=== PATIENT | female | born 1985 | race Caucasian/White ===

== ENCOUNTER → 2016-11-17 | Outpatient (CLI) | payer OTHER ==
[~2016-11-17] MED LIST: ALBUTEROL SULF0.5 M1 IH; CELEXA 20MG20 MG/TAB PO; CYPROHEPTADINE H4 MG PO; DEPO-PROVER150 MG/M1 IM; LANTUS SOLOS100 U/ML SQ; NICODERM C21 MG/PATC TOP; NOVOLOG 100U100 U/M1 SC; NOVOLOG FLEX100 U/ML SQ; TOPAMAX 100MG100 M1 PO; TRILEPTAL600 MG PO; ZOFRAN8 MG PO
== END ==
LOC: COL.LAB 16:14
DX: O03.9 Complete or unspecified spontaneous abortion without complication (principal)

== ENCOUNTER → 2016-11-24 | Outpatient (CLI) | payer OTHER | LOC: COL.LAB 12:32 | DX: E34.9 Endocrine disorder, unspecified (principal) ==

== ENCOUNTER → 2016-12-02 | Outpatient (CLI) | payer OTHER | LOC: COL.LAB 15:22 | DX: E34.9 Endocrine disorder, unspecified (principal) ==

== ENCOUNTER 2017-07-12 02:27 | Emergency (ER) | payer OTHER ==
[~2017-07-12] VITALS: Ht 177.8 cm; Wt 90.5 kg
[2017-07-12 03:40] LABS: COLLECTION METHOD CLEAN CATCH
[2017-07-12 03:43] LABS: BASO % 0.3 % (0.0-2.0); EOS # 0.2 (0.0-0.7); EOS % 1.2 % (0-4.0); GRAN # 11.2 (1.4-6.5); GRAN % 81.4 % (42.2-75.2); HEMATOCRIT 37.3 % (37.0-47.0); HEMOGLOBIN 12.2 g/dl (12.5-16.0); LYMPH # 1.4 (1.2-3.4); MEAN CELL VOLUME 94 fl (80.0-100.0); MEAN CORPUSCULAR HEMOGLOBIN 31 pg (27.0-31.0); MEAN CORPUSCULAR HGB CONC 33 g/dl (33.0-37.0); MEAN PLATELET VOLUME 10.2 fl (7.4-10.4); MONO # 0.9 (0.1-0.6); MONO % 6.6 % (1.7-9.3); PLATELET COUNT 225 K/mm3 (130-400); RED BLOOD COUNT 3.99 M/mm3 (4.10-5.30)
[2017-07-12 03:49] LABS: MUCOUS Present /lpf; PH 6 (5-8); URINE APPEARANCE Clear; URINE BACTERIA Moderate /hpf; URINE BILIRUBIN Negative (NEGATIVE); URINE BLOOD 1+ (NEGATIVE); URINE COLOR Yellow; URINE GLUCOSE Negative (NEGATIVE); URINE KETONE Negative (NEGATIVE); URINE LEUKOCYTE ESTERASE Negative (NEGATIVE); URINE NITRATE Negative (NEGATIVE); URINE PROTEIN(semi-quant) 2+ (NEGATIVE); URINE RBC 0-2 /hpf; URINE UROBILINOGEN Negative (NEGATIVE)
[2017-07-12 03:54] LABS: ALBUMIN 3.8 gm/dL (3.5-5.0); BILIRUBIN,TOTAL 0.1 mg/dL (0.0-1.0); CALCIUM 8.8 mg/dL (8.4-10.2); CREATININE, serum 0.61 mg/dL (0.52-1.25); POTASSIUM 3.7 mmol/L (3.4-5.0); TOTAL PROTEIN 7.2 gm/dL (6.4-8.2)
[2017-07-12 05:13] VITALS: PULSE 95
[2017-07-12 05:23] VITALS: BP 144/96
== END 2017-07-12 05:30 | disposition home or self-care (01) ==
LOC: COL.ER 02:27
PROVIDERS: Emergency Medicine
DX: O24.013 Pre-existing type 1 diabetes mellitus, in pregnancy, third trimester (principal); E10.649 Type 1 diabetes mellitus with hypoglycemia without coma; Z3A.28 28 weeks gestation of pregnancy

== ENCOUNTER 2017-08-29 06:57 | Outpatient (CLI) | payer OTHER ==
[~2017-08-29] VITALS: Ht 177.8 cm; Wt 98.2 kg
[2017-08-29 07:11] VITALS: BP 137/91; PULSE 95; TEMP 98.3
[2017-08-29] MEDS ORDERED: NOVOLOG 100U100 U/M1 SQ (07:19)
[2017-08-29] MEDS ORDERED: TRILEPTAL600 MG PO (07:20)
[2017-08-29] MEDS ORDERED: PRENATAL PLUS (07:21)
[2017-08-29] MEDS ORDERED: NORMODYNE100 MG PO (07:22)
[2017-08-29] MEDS ORDERED: ASPIRIN 81M81 MG/TA2 PO (07:23)
[2017-08-29] MEDS ORDERED: FOLIC ACID0.4 MG PO (07:23)
[2017-08-29 07:53] VITALS: BP 135/82; PULSE 78; TEMP 98.3
== END 2017-08-29 07:55 | disposition home or self-care (01) ==
LOC: LDRO 06:57
DX: O36.8130 Decreased fetal movements, third trimester, not applicable or unspecified (principal); Z3A.35 35 weeks gestation of pregnancy

== ENCOUNTER → 2017-10-08 | Outpatient (CLI) | payer OTHER ==
[~2017-10-08] MED LIST changes: +ASPIRIN 81M81 MG/TA2 PO; +FOLIC ACID0.4 MG PO; +NORMODYNE100 MG PO; +NOVOLOG 100U100 U/M1 SQ; +PRENATAL PLUS
== END ==
LOC: LAC 14:03
DX: Z39.1 Encounter for care and examination of lactating mother (principal); Z71.89 Other specified counseling

== ENCOUNTER 2021-05-28 05:46 | Emergency (ER) | payer OTHER ==
[2021-05-28 05:50] VITALS: BP 134/89; TEMP 98.2
[2021-05-28] MEDS ORDERED: PREDNISONE50 MG PO (06:13)
[2021-05-28 06:30] VITALS: PULSE 78
[2021-05-29] MEDS ORDERED: SYMJEPI0.3 MG/0.3 IJ (16:33)
== END 2021-05-28 06:40 | disposition home or self-care (01) ==
LOC: COL.ER 05:46
DX: L50.9 Urticaria, unspecified (principal); E10.9 Type 1 diabetes mellitus without complications
CPT/HCPCS: J7512

== ENCOUNTER 2021-05-29 13:08 | Emergency (ER) | payer OTHER ==
[~2021-05-29] VITALS: Ht 177.8 cm; Wt 95.5 kg
[~2021-05-29 13:08] MED LIST changes: +PREDNISONE50 MG PO
[2021-05-29 13:11] VITALS: TEMP 97.9
[2021-05-29] MEDS ORDERED: SYMJEPI0.3 MG/0.3 IJ (16:33)
[2021-05-29 17:15] VITALS: BP 115/71; PULSE 99
== END 2021-05-29 17:15 | disposition home or self-care (01) ==
LOC: COL.ER 13:08
DX: T78.3XXA Angioneurotic edema, initial encounter (principal); T78.2XXA Anaphylactic shock, unspecified, initial encounter; E10.9 Type 1 diabetes mellitus without complications
CPT/HCPCS: J0171; J1200; J2930; J7030

== ENCOUNTER 2022-09-05 08:06 | Outpatient (CLI) | payer OTHER ==
[~2022-09-05] VITALS: Ht 177.8 cm; Wt 115.5 kg
[~2022-09-05 08:06] MED LIST changes: +SYMJEPI0.3 MG/0.3 IJ
--- NOTE | 2022-09-05 08:15 | NUR ---
PATIENT WHEELED TO UNIT BY KIRSTY. ALFREDO ORIENTED TO LABOR ROOM 4 AND ASSISTED INTO GOWN. PATIENT REPORTS LOCALIZED PAIN IN HER LOWER RIGHT ABDOMEN THAT RADIATES TO HER LEG IF SHE PUTS WEIGHT ON IT, DECREASED MOVEMENT AT HOME AND TRIED EATING A SNACK, DRINKING WATER OR HOT TEA AND EXTERNAL STIMULATION. PATIENT HAS NOT HAD CONTRACTIONS AND IS NOT HAVING LEAKING OR FLUID OR VAGINAL BLEEDING. UPON FURTHER ASSESSMENT PATIENT SLIPPED ON A PILLOW IN THE MIDDLE OF NIGHT ON 09/03/22 AND HAS HAD THE PAIN SINCE THEN. PATIENT REPORTS FEELING BABY MOVE A FEW TIME SINCE ARRIVAL TO THE HOSPITAL.
[2022-09-05] MEDS ORDERED: LEVOXYL0.025 MG PO (08:42)
[2022-09-05 09:12] VITALS: BP 138/88; PULSE 95; TEMP 98.4
--- NOTE | 2022-09-05 09:22 | NUR ---
DICHARGE ORDER OBTAINED FROM . PATIENT AGREES WITH GOING HOME AND ADKNOWLEDGES NEED TO KEEP ALL OB APPOINTMENTS AND TRY TO REST. PATIENT AMBULATORY OFF UNIT.
== END 2022-09-05 09:22 | disposition home or self-care (01) ==
LOC: LDRO 08:06 → LDR 08:15 → LDRO 09:22
DX: O36.8130 Decreased fetal movements, third trimester, not applicable or unspecified (principal); Z3A.34 34 weeks gestation of pregnancy
CPT/HCPCS: OP

== ENCOUNTER 2022-09-08 02:27 | Outpatient (CLI) | payer OTHER ==
[~2022-09-08] VITALS: Ht 177.8 cm; Wt 115.5 kg
[~2022-09-08 02:27] MED LIST changes: +LEVOXYL0.025 MG PO
--- NOTE | 2022-09-08 02:35 | NUR ---
0235- PT PRESENTS TO LDR COMPLAINING OF N/V/D, TO ROOM LR6 PER WHEELCHAIR, CHANGED INTO GOWN. 0241- EFM X2 APPLIED. DIFFICULT TO GET FHT'S DUE TO BREECH POSITION AND MOM MOVING AROUND AND VOMITTING. PT REPORTS SHE HAS BEEN VOMITTING ALL DAY AND HASN'T KEPT ANYTHING DOWN BUT A BOTTLE OF WATER AT 1600. HAS ALSO HAD MULTIPLE EPISODES OF DIARRHEA. FEELS LIKE SHE LEAKED WITH AN EPISODE OF VOMITTING AND IS WORRIED THAT SHE MAY HAVE RUPTURED, SHE IS NOT CURRENTLY LEAKING ANYTHING. PT IS A TYPE 1 DIABETIC AND HAS TURNED HER PUMP OFF DUE TO N/V/D. PT STATES SHE IS FEELING BABY MOVE. 0250- AMNIOTRACE NEGATIVE FOR SROM, SVE BY THIS NURSE 0- WITH NO POOLING OF FLUID OR VAGINAL BLEEDING. PLAN OF CARE DISCUSSED WITH PT AND QUESTIONS ANSWERED. NURSE CONTINUES TO ADJUST MONITOR. 0305- MONITORS ADJUSTED. 0317- PT UP TO BATHROOM. 0321- DR FRANCO CALLED CHARTED. ORDERS RECEIVED. 0325- PT REPORTS BLOOD SUGAR IS 326 PER HER CONTINUOUS MONITOR AND THIS IS REPORTED TO DR FRANCO. 0335-IV START TO LEFT HAND, BLOOD DRAWN FOR LAB. PT BACK ON MONITORS. 0343- NORMAL SALINE INFUSING AND ZOFRAN GIVEN ORDERED. 0348- PT BACK TO BED AND ON EFM MONITORS. 0356- PT REPORTS BLOOD GLUCOSE IS 341 PER HER CONTINUOUS MONITOR. 0405- DIFFICULT TO MONITOR FHT DUE TO BABY BREECH POSITION AND PT NOW ON LEFT SIDE. 0422- PT REPORTS BLOOD GLUCOSE IS 323 PER HER CONTINUOUS MONITOR. 0425- DR FRANCO CALLED AND UPDATED CHARTED. ORDERS RECEIVED.
[2022-09-08 03:00] VITALS: BP 132/77; PULSE 116; TEMP 98.9
[2022-09-08 03:30] VITALS: PULSE 119
[2022-09-08 03:59] LABS: HEMATOCRIT 42.1 % (37.0-47.0); HEMOGLOBIN 13.6 g/dl (12.5-16.0); MEAN CELL VOLUME 88 fl (80.0-100.0); MEAN CORPUSCULAR HEMOGLOBIN 28 pg (27-31); MEAN CORPUSCULAR HGB CONC 32 g/dl (33.0-37.0); MEAN PLATELET VOLUME 12.7 fl (7.4-10.4); PLATELET COUNT 186 K/mm3 (130-400); RED BLOOD COUNT 4.81 M/mm3 (4.10-5.30)
--- NOTE | 2022-09-08 04:40 | NUR ---
0440- NURSE TO BEDSIDE, MONITORS ADJUSTED. PT REPORTS SHE HAS BEEN FEELING BETTER. 0445- BLOOD GLUCOSE 303 PER PTS CONTINUOUS MONITOR. 0505- NEGRO BRADLEY HERE FOR HOSPITALIST CONSULT. UPDATED BY NURSE AND REVIEWS PT CHART. 0515- NEGRO TO BEDSIDE TO ASSESS PT AND ANSWER QUESTIONS. 0520- ORDERS RECEIVED. 0532- IV INSULIN GIVEN ORDERED. BLOOD GLUCOSE 230 PER PTS CONTINUOUS MONITOR. 0535- PT UP TO BATHROOM. 0553- PT BACK TO BED ON MONITOR. SHE REPORTS THAT HER CONTINUOUS MONITOR SAYS HER BG IS OVER 200, SO SHE DID A FINGERSTICK ON HER MONITOR THAT SAID 140. SHE WANTS US TO USE OUR GLUCOSE MACHINE TO DOUBLE CHECK. 0600- BLOOD GLUCOSE PER HOSPITAL GLUCOMETER 120. PT STATES SHE FEELS LIKE SHE CAN EAT A SNACK AT THIS TIME. MARK CRACKERS, PEANUT BUTTER, AND ORANGE PROVIDED.
[2022-09-08 05:00] VITALS: BP 130/75; PULSE 120
[2022-09-08 05:00] LABS: BAND 24 % (0-10); LYMPHOCYTE 5 % (20.0-51.0); NEUTROPHILS 65 % (42.0-75.2); PLATELET ESTIMATE NORMAL (NORMAL)
[2022-09-08 05:30] VITALS: BP 126/80; PULSE 121
[2022-09-08 06:21] LABS: COLLECTION METHOD CLEAN CATCH
[2022-09-08 06:32] LABS: ALBUMIN 2.6 gm/dL (3.5-5.0); BILIRUBIN,TOTAL 0.4 mg/dL (0.2-1.2); CREATININE, serum 0.77 mg/dL (0.57-1.11); POTASSIUM 4.2 mmol/L (3.5-4.5); TOTAL PROTEIN 6.6 gm/dL (6.2-8.1)
[2022-09-08 06:38] LABS: MUCOUS Present (NOT PRESENT); URINE BACTERIA None Seen /hpf (NONE SEEN)
[2022-09-08 06:50] LABS: URINE APPEARANCE Hazy (CLEAR/HAZY); URINE BLOOD Negative (NEGATIVE); URINE COLOR Yellow (YELLOW); URINE GLUCOSE 2+ (NEGATIVE); URINE KETONE 4+ (NEGATIVE); URINE NITRATE Negative (NEGATIVE); URINE PROTEIN(semi-quant) TRACE (NEGATIVE); URINE UROBILINOGEN 0.2 E.U/dL (0.2-1.0)
--- NOTE | 2022-09-08 07:04 | NUR ---
CALL TO NEWSPAPER REPORTER OB TO PROVIDE IN DEPTH PT UPDATE. PT, IS OUT OF OFFICE TODAY. PER LAB, PT IS COVID+, PROPER PRECAUTIONS IN PLACE. HOSPITALIST FOLLOWING THROUGHOUT NIGHT, WAS CONCERNED WITH DKA POTENTIAL. ALL BLOOD SUGARS STABLE USING HOSPITAL ACCUCHECK, BG AT 0630:108. PER WE CAN DC ORDERS FOR Q30 MIN BG'S PER ON FINISH PRODUCTION MANAGER. CHECK BG'S PRN FROM THIS POINT FORWARD. PT REPORTS RELIEF WITH IV FLUIDS AND ZOFRAN. ALL LABS REVIEWED. CATEGORY 1 INTERMITTENT EFM TRACING. INFANT PRESENTING BREECH. NO CONTRACTIONS NOTED. MODERATE VARIABILITY AT THIS TIME. PT ABLE TO TOLERATE PO MARK CRACKERS AND PEANUT BUTTER. TALKATIVE AND APPEARS TO BE FEELING BETTER. PER PT MAY DC HOME FOLLOWING HOSPITALIST ROUNDING, IF HOSPITALIST IS IN AGREEANCE AFTER REVIEWING CASE. STATES HE IS "FINE WITH PO COVID MEDS, IF HOSPITALIST RECOMMENDS THEM." PT TO CONTINUE AT HOME WITH CURRENT HOME PROTOCOL REGARDING IV INSULIN PUMP AND BG CHECKS. STOOL SAMPLE AND FLU SWAB STILL PENDING. WILL UPDATE HOSPITALIST AT THIS TIME TO DETERMINE NEXT STEPS IN POC.
--- NOTE | 2022-09-08 07:20 | NUR ---
, HOSPITALIST CALLED AT THIS TIME. FULL PT REPORT PROVIDED UPON REQUEST. NOTIFIED PT IS COVID +. ALL QUESTIONS ANSWERED APPROPRIATELY. REVIEWED TRIAL MGR CURRENT ORDERS, INCLUDING PT BEING ALLOWED TO DC HOME UPON HOSPITALIST APPROVAL. PER HE IS GOING TO REVIEW CASE, AND "GET BACK TO ME" WITH FURTHER ORDERS, INCLUDING DC PLAN.
--- NOTE | 2022-09-08 08:10 | NUR ---
AT BEDSIDE. PER , PT MAY DC HOME. PT ALREADY ON ASPIRIN THERAPY, ORDERS TO CONTINUE. ALREADY SEEING MFM. WILL CONTINUE WITH [id number] FOLLOW UP APPOINTMENTS AND RETURN WITH WORSENING SYMPTOMS. NOTIFIES HOSPITALIST OF PT'S DISCHARGE.
--- NOTE | 2022-09-08 08:30 | NUR ---
0830 - ALL D/C PAPERWORK REVIEWED AND UNDERSTOOD. PATIENT AMBULATORY OFF UNIT IN STABLE CONDITION.
== END 2022-09-08 08:30 | disposition home or self-care (01) ==
LOC: LDRO 02:27 → LDR 03:21 → LDRO 08:30
PROVIDERS: Obstetrics & Gynecology
DX: O21.9 Vomiting of pregnancy, unspecified (principal); Z3A.34 34 weeks gestation of pregnancy
CPT/HCPCS: OP; J1815; J2405; J7030

== ENCOUNTER 2022-09-11 09:26 | Outpatient (CLI) | payer OTHER ==
[~2022-09-11] VITALS: Ht 177.8 cm; Wt 115.2 kg
--- NOTE | 2022-09-11 09:02 | NUR ---
0902- Pt ambulates onto unit, escorted up by this RN through back stairway due to COVID +. Pt wearing mask. 0904- Pt into bed after voiding. EFM and TOCO on and tracing well. O2 sat monitor on and tracing maternal HR. Pt denies VB, LOF, UCs. +FM per Pt. Pt denies any current COVID symptoms. BP elevated, serial BPs initiated. Pt denies, CARTER, visual disturbances, swelling. Will continue to monitor.
--- NOTE | 2022-09-11 09:27 | NUR ---
Recheck BP 159/100. Switched to the large adult cuff and rechecked 140/90. Will continue to monitor.
[2022-09-11 10:10] VITALS: BP 136/86; PULSE 88
[2022-09-11 10:23] LABS: COLLECTION METHOD CLEAN CATCH
[2022-09-11 10:25] VITALS: BP 132/83; PULSE 81
[2022-09-11 10:31] LABS: URINE APPEARANCE Clear (CLEAR/HAZY); URINE COLOR Yellow (YELLOW)
[2022-09-11 10:32] LABS: PH 5.5 (5.0-8.5); URINE BLOOD TRACE-INTACT (NEGATIVE); URINE GLUCOSE Negative (NEGATIVE); URINE KETONE Negative (NEGATIVE); URINE NITRATE Negative (NEGATIVE); URINE PROTEIN(semi-quant) Negative (NEGATIVE); URINE UROBILINOGEN 0.2 E.U/dL (0.2-1.0)
[2022-09-11 10:32] LABS: BASO % 0.2 % (0.0-2.0); EOS # 0.1 K/mm3 (0.0-0.7); GRAN # 4.8 K/mm3 (1.4-6.5); GRAN % 75.6 % (42.2-75.2); HEMOGLOBIN 11.4 g/dl (12.5-16.0); LYMPH # 0.9 K/mm3 (1.2-3.4); LYMPH % 13.5 % (20.0-51.0); MEAN CELL VOLUME 88 fl (80.0-100.0); MEAN CORPUSCULAR HEMOGLOBIN 28 pg (27-31); MEAN CORPUSCULAR HGB CONC 32 g/dl (33.0-37.0); MEAN PLATELET VOLUME 11.2 fl (7.4-10.4); MONO # 0.6 K/mm3 (0.1-0.6); MONO % 9.1 % (1.7-9.3); PLATELET COUNT 188 K/mm3 (130-400); RED BLOOD COUNT 4.06 M/mm3 (4.10-5.30)
[2022-09-11 10:33] LABS: HEMATOCRIT 35.9 % (37.0-47.0)
[2022-09-11 10:35] LABS: SQUAMOUS EPITHELIAL 0-2 /hpf (0-10); URINE BACTERIA None Seen /hpf (NONE SEEN); URINE RBC 0-2 /hpf (0-2)
[2022-09-11 10:40] VITALS: BP 151/91; PULSE 78
[2022-09-11 10:50] LABS: ALBUMIN 2.6 gm/dL (3.5-5.0); BILIRUBIN,TOTAL 0.2 mg/dL (0.2-1.2); CALCIUM 8.6 mg/dL (8.4-10.2); CREATININE, serum 0.69 mg/dL (0.57-1.11); POTASSIUM 3.9 mmol/L (3.5-4.5); TOTAL PROTEIN 6.5 gm/dL (6.2-8.1)
--- NOTE | 2022-09-11 11:05 | NUR ---
1100- Pt updated on plan to discharge home. Pre-E precautions given, encouraged to call [facility] at any time with concerns. Pt encouraged to follow- up with MFM on Wednesday as scheduled. Pt denies questions and verbalized understanding. 1105- Pt escorted off unit ambulatory.
== END 2022-09-11 11:05 | disposition home or self-care (01) ==
LOC: LDRO 09:26
PROVIDERS: Obstetrics & Gynecology
DX: O24.419 Gestational diabetes mellitus in pregnancy, unspecified control (principal); U07.1 COVID-19; E06.3 Autoimmune thyroiditis; Z3A.34 34 weeks gestation of pregnancy

== ENCOUNTER 2022-10-01 21:28 | Outpatient (CLI) | payer OTHER ==
[2022-10-01] VITALS (7 sets, daily range): BP systolic 143–153; BP diastolic 88–98; PULSE 83–97; TEMP 98.5
[~2022-10-01] VITALS: Ht 177.8 cm; Wt 118.2 kg
--- NOTE | 2022-10-01 21:45 | NUR ---
G6L2 at 37 weeks and 5 days arrives to unit with complaint of increased BP at home and sharp upper abdominal pain. Pt states her blood pressure at home was 176/99 but forgot to take morning dose of labetalol. Took night time dose at 2030, labatelol 100 mg orally. Pt denies headaches or changes in vision. Pt is a type 1 diabetic with an insulin pump. Pt states last blood sugar at home was in the 90s before her meal around 1800. Pt states she has irregular contractions throughout the day but nothing that feels like labor. Reports good movement and denies vaginal bleeding or LOF. Clean gown on. Pt oriented to room, call light within reach, bed in low and locked position. No SVE at this time due to no complaint of contractions. Vitals obtained. Admission assessment started. Reviewed plan of care.
[2022-10-01 22:38] LABS: COLLECTION METHOD CLEAN CATCH
[2022-10-01 23:02] LABS: ALBUMIN 2.5 gm/dL (3.5-5.0); BILIRUBIN,TOTAL 0.2 mg/dL (0.2-1.2); CALCIUM 8.1 mg/dL (8.4-10.2); CREATININE, serum 0.72 mg/dL (0.57-1.11); POTASSIUM 3.9 mmol/L (3.5-4.5)
[2022-10-01 23:06] LABS: URINE APPEARANCE Clear (CLEAR/HAZY); URINE BLOOD TRACE-INTACT (NEGATIVE); URINE COLOR Yellow (YELLOW); URINE GLUCOSE 2+ (NEGATIVE); URINE KETONE TRACE (NEGATIVE); URINE NITRATE Negative (NEGATIVE); URINE PROTEIN(semi-quant) 1+ (NEGATIVE); URINE UROBILINOGEN 0.2 E.U/dL (0.2-1.0)
[2022-10-01 23:13] LABS: MUCOUS Present (NOT PRESENT); SQUAMOUS EPITHELIAL 20-50 /hpf (0-10); URINE BACTERIA Rare /hpf (NONE SEEN)
[2022-10-01 23:28] LABS: BASO % 0.3 % (0.0-2.0); EOS # 0.1 K/mm3 (0.0-0.7); EOS % 1.2 % (0.0-4.0); GRAN # 5.2 K/mm3 (1.4-6.5); GRAN % 69.9 % (42.2-75.2); HEMOGLOBIN 10.1 g/dl (12.5-16.0); LYMPH # 1.4 K/mm3 (1.2-3.4); LYMPH % 18.7 % (20.0-51.0); MEAN CELL VOLUME 87 fl (80.0-100.0); MEAN CORPUSCULAR HEMOGLOBIN 28 pg (27-31); MEAN CORPUSCULAR HGB CONC 32 g/dl (33.0-37.0); MEAN PLATELET VOLUME 11.9 fl (7.4-10.4); MONO # 0.7 K/mm3 (0.1-0.6); MONO % 9.4 % (1.7-9.3); PLATELET COUNT 148 K/mm3 (130-400); RED BLOOD COUNT 3.62 M/mm3 (4.10-5.30); REDCELL DISTRIBUTION WIDTH-CV 14.3 % (11.5-14.5)
[2022-10-01 23:29] LABS: HEMATOCRIT 31.5 % (37.0-47.0)
--- NOTE | 2022-10-01 23:40 | NUR ---
Reviewed labs and BP's with patient. Discussed discharge plan and return precautions. Discharge paperwork signed. Pt seen ambulating off unit with belongings.
== END 2022-10-01 23:40 | disposition home or self-care (01) ==
LOC: LDRO 21:28 → LDR 22:06 → LDRO 23:40
PROVIDERS: Obstetrics & Gynecology; Student in an Organized Health Care Education/Training Program
DX: O26.893 Other specified pregnancy related conditions, third trimester (principal); R10.9 Unspecified abdominal pain; O16.3 Unspecified maternal hypertension, third trimester; Z3A.37 37 weeks gestation of pregnancy

== ENCOUNTER 2022-10-06 10:21 | Inpatient (IN) | payer OTHER ==
[2022-10-06] VITALS (16 sets, daily range): BP systolic 96–155; BP diastolic 68–95; PULSE 85–108; TEMP 97.8–98.5
[~2022-10-06] VITALS: Ht 177.8 cm; Wt 115.9 kg
--- NOTE | 2022-10-06 10:35 | NUR ---
PT AMBULATED TO ROOM 210 WITH AT SIDE. PT DENIES CONTRACTIONS, LEAKING FLUIDS OR BLOOD AND HAS FELT MOVEMENT. PT HOOKED UP TO TOCO AND EFM. VSS. THE PATIENT IS HERE FOR A SCHEDULED D/T GESTATIONAL HTN AND BREECH PRESENTATION.
[2022-10-06 11:21] LABS: BASO % 0.3 % (0.0-2.0); EOS # 0.1 K/mm3 (0.0-0.7); EOS % 1.2 % (0.0-4.0); GRAN # 5.6 K/mm3 (1.4-6.5); GRAN % 72.7 % (42.2-75.2); HEMOGLOBIN 11.6 g/dl (12.5-16.0); LYMPH # 1.2 K/mm3 (1.2-3.4); LYMPH % 15.8 % (20.0-51.0); MEAN CELL VOLUME 86 fl (80.0-100.0); MEAN CORPUSCULAR HEMOGLOBIN 28 pg (27-31); MEAN CORPUSCULAR HGB CONC 33 g/dl (33.0-37.0); MEAN PLATELET VOLUME 12.3 fl (7.4-10.4); MONO # 0.7 K/mm3 (0.1-0.6); MONO % 9.4 % (1.7-9.3); PLATELET COUNT 157 K/mm3 (130-400); RED BLOOD COUNT 4.11 M/mm3 (4.10-5.30); REDCELL DISTRIBUTION WIDTH-CV 14.5 % (11.5-14.5)
[2022-10-06 11:25] LABS: HEMATOCRIT 35.4 % (37.0-47.0)
[2022-10-06] MEDS ORDERED: NORMODYNE100 MG PO (11:33)
[2022-10-06] MEDS ORDERED: PRILOTC PO (11:36)
[2022-10-06 11:39] LABS: ALBUMIN 2.8 gm/dL (3.5-5.0); BILIRUBIN,TOTAL 0.3 mg/dL (0.2-1.2); CALCIUM 8.5 mg/dL (8.4-10.2); CREATININE, serum 0.73 mg/dL (0.57-1.11); POTASSIUM 4.5 mmol/L (3.5-4.5); TOTAL PROTEIN 6.7 gm/dL (6.2-8.1)
--- NOTE | 2022-10-06 12:55 | NUR ---
1255: PT TO PACU FOLLOWING REPEAT SECTION IN STABLE CONDITION. QBL DURING OPERATION: 203 CC. LOCHIA SCANT AT THIS TIME. MATERNAL VITAL SIGNS STABLE. LR INFUSING PER PROTOCOL. ANESTHESIA REPORT PROVIDED BY SILVIO LIRA. PT ALERT AND ORIENTED. VARGAS DRAINING CLEAR YELLOW URINE. DRESSING TO ABDOMEN CDI. FUNDUS FIRM AT UMBILICUS WITH MASSAGE. PER DR.NEWCOMER ZAMBRANO, PT IS TO CONTINUE LABETALOL THIS EVENING WITH HS DOSE PER HOME DOSAGE. PT IS ALSO TO INDEPENDENTLY MONITOR BLOOD GLUCOSE LEVELS PER HER PERSONAL IMPLANTED DEXCOM DEVICE. PT INDEPENDENTLY MANAGING TYPE 1 DIABETES X25+ YEARS AND PER MAY CONTINUE TO MONITOR LEVELS AND ADJUST INSULIN PER PREVIOUS ORDERS. PT COMPETENT AND WELL EDUCATED ON DIABETES TREATMENT AND MONITORING COMPLIANCE. 1300: MATERNAL BLOOD GLUCOSE: 162 PER PT'S DEXCOM DEVICE AT THIS TIME. INSULIN PUMP REMAINS OFF FROM PRIOR TO PT ARRIVAL TODAY. 1325: PT DISCHARGED FROM PACU IN STABLE CONDITION. LOCHIA SCANT. FUNDUS FIRM AT THE UMBILICUS. MATERNAL VITAL SIGNS STABLE. ON BREAST. FOB AT BEDSIDE AND SUPPORTIVE. PT TO PP ORDONEZ TO CONTINUE WTIH PP CARES PER PROTOCOL.
[2022-10-07 00:30] VITALS: BP 141/87; PULSE 104; TEMP 98.4
[2022-10-07 04:00] VITALS: BP 146/58; PULSE 98; TEMP 98.5
[2022-10-07 07:01] LABS: HEMATOCRIT 30.2 % (37.0-47.0); HEMOGLOBIN 9.5 g/dl (12.5-16.0)
[2022-10-07 07:30] VITALS: BP 155/92; PULSE 90; TEMP 98.1
--- NOTE | 2022-10-07 08:20 | NUR ---
PATIENT IS MANAGING HER OWN BLOOD SUGAR. PATIENT REPORTS HER SUGAR IS LOW AND IS REQUESTING JUICE. PATIENT PROVIDED JUICE AT THIS TIME. PATIENT DOES NOT REQUEST ANTHING ELSE AT THIS TIME.
[2022-10-07] MEDS ORDERED: ROXICODONE 55 MG/TAB PO (09:56)
--- NOTE | 2022-10-07 10:26 | NUR ---
Initial visit; Patient thanked Construction Estimator for offering congratulations and God's blessings for the of her daughter. Construction Estimator thanked mom for choosing [facility].
--- NOTE | 2022-10-07 12:00 | NUR ---
PATIENT USED CALL LIGHT TO LET STAFF KNOW HER BLOOD SUGAR IS LOW. PATIENT REQUESTED JUICE AND THIS RN DELIVERED JUICE TO BEDSIDE. PATIENT MANAGING HER OWN BLOOD SUGAR AT THIS TIME
--- NOTE | 2022-10-07 13:20 | NUR ---
PATIENT CALLED OUT WITH REPORT OF HEADACHE AND LOW BLOOD SUGAR, REQUESTING JUICE. RN AT BEDSIDE WITH JUICE. PATIENT REPORTS SHE IS TRYING TO TITRATE HER INSULIN TO KEEP HER SUGAR STABLE, PATIENT ALSO REPORTS HAVING A HARD TIME WITH PAST PREGNANCIES. PATIENT CONTINUES TO MANAGE HER OWN BLOOD SUGAR.
[2022-10-07 17:15] VITALS: BP 148/87; PULSE 100; TEMP 98.6
[2022-10-07 20:00] VITALS: BP 144/82; PULSE 78; TEMP 98.7
--- NOTE | 2022-10-08 05:32 | NUR ---
PATIENT REPORTED THAT HER BLOOD SUGAR WAS A LITTLE LOW WHEN SHE CHECKED IT, PATIENT WAS BROUGHT ORANGE JUICE, PATIENT REPORTED SHE ALSO HAD SOME PEANUTBUTTER SHE WAS GOING TO EAT WELL
[2022-10-08 07:36] VITALS: BP 126/76; PULSE 76; TEMP 98.1
== END 2022-10-08 11:10 | disposition home or self-care (01) | DRG 786 ==
LOC: OB 10:21
PROVIDERS: ADMIT Obstetrics & Gynecology
PROC: 10D00Z1 Extraction of Products of Conception, Low, Open Approach (ICD-10-PCS; principal; 2022-10-06)
DX: O34.211 Maternal care for low transverse scar from previous cesarean delivery (principal); O24.02 Pre-existing type 1 diabetes mellitus, in childbirth; O32.1XX0 Maternal care for breech presentation, not applicable or unspecified; O11.4 Pre-existing hypertension with pre-eclampsia, complicating childbirth; O99.820 Streptococcus B carrier state complicating pregnancy; O99.214 Obesity complicating childbirth; O99.284 Endocrine, nutritional and metabolic diseases complicating childbirth; E03.9 Hypothyroidism, unspecified; E10.8 Type 1 diabetes mellitus with unspecified complications; Z3A.38 38 weeks gestation of pregnancy; Z37.0 Single live birth
CPT/HCPCS: J0690; J1100; J1885; J2405; J2590; J7120

== ENCOUNTER → 2022-11-03 | Outpatient (CLI) | payer OTHER ==
[~2022-11-03] MED LIST changes: +PRILOTC PO; +ROXICODONE 55 MG/TAB PO
--- NOTE | 2022-11-03 16:40 | NUR ---
Pt, Berta Raza, presents to walk-in clinic wiht 4 week old baby girl, Jacquie Raza, for a evaluation because she does not feel Jacquie is gaining weight. She also states Jacquie is eating more frequently, and pt's milk supply does not seem to fill up much between feedings. Jacquie was born on [birth year] and weighed 7# 7.9oz (3400gms). She was weighed on 10/20/22 at this clinic and weighed 7# 2.7oz (3250 gms). This was a gain of 4.2oz over 4 days per pt's report of Jacquie weight at the previous doctor's appt. Today Jacquie weighs 8# 1.1oz (3660 gms) for an average gain of 0.68oz /day over the last 21 days. After today Jacquie had a gain of 2.6oz (72 gms). Pt's experience with her two other children involved a lot of pumping and extra milk supply, so her perception is different with Jacquie since she is trying to exclusive breastfeed without extra pumping. PT also requests Jacquie be evaluated for tongue tie, LC notes mild tongue and lip tie, but advises monitoring progress for a bit longer as overall is not complicated at this time by these tethers. POC: Continue BF ad aman. F/U: Walk-in clinic in two days, as scheduled with physicians. Questions invited and answered.
== END ==
LOC: LAC 14:00
DX: Z39.1 Encounter for care and examination of lactating mother (principal); Z71.89 Other specified counseling